=== PATIENT | female | born 1935 | race Caucasian/White ===

== ENCOUNTER 2016-11-24 16:33 | Observation (INO) | payer OTHER, BC ==
[~2016-11-24] VITALS: Ht 165.1 cm; Wt 61.4 kg
[~2016-11-24 16:33] MED LIST: ACID CONTROL150 MG PO; ALBUTEROL2.5 MG/3 M IH; AMLODIPINE BESYL5 MG PO; BENZONATATE200 MG PO; CALCIUM 500 +1 EAC4 PO; CALCIUM 500 MG1 EAC1 PO; CLONAZEPAM0.5 MG PO; CLONAZEPAM1 MG PO; DALIRESP500 MCG PO; DIFLUCAN150 MG PO; DOXYCYCLINE HY100 MG PO; EFFEXOR XR75 MG PO; EFFEXOR75 MG PO; HYDROCHLOROTHIA25 MG PO; JUBLIA4 ML TP; KLONOPIN1 MG PO; LEFLUNOMIDE20 MG PO; LEVAQUIN500 MG PO; NORCO 5/3251 TABLET PO; NORVASC5 MG PO; OCUVITE TABLET1 EACH PO; OMEPRAZOLE40 M1 PO; ONCE DAILY1 EACH PO; PAXIL20 MG PO; PREDNISONE20 MG PO; PREDNISONE50 MG PO; ROBITUSSIN AC,T10 ML PO; SPIRIVA1 INHALATI IH; SYMBICORT60 INHALAT IH; VENLAFAXINE HC150 M1 PO; VENTOLIN HFA18 GM IH
[2016-11-24 17:07] LABS: HEMATOCRIT 42.9 % (36.0-46.0); MCH 28.8 PG (29.0-34.0); MCHC 32.9 G/DL (30.0-36.0); MCV 87.7 FL (83-99); MEAN PLAT.VOLUME 10.5 uM^3 (9.5-12.4); PLATELET COUNT 214 K/uL (156-360); RBC DIS.WIDTH-CV 12.6 % (11.8-14.6); RBC DIS.WIDTH-SD 39.8 % (39-53); RED BLOOD COUNT 4.89 M/uL (3.80-5.20); WHITE BLOOD COUNT 5.2 K/uL (4.1-10.2)
[2016-11-24 17:16] LABS: CHLORIDE 99 mEq/L (99-109); POTASSIUM 3.9 mEq/L (3.7-5.4); SODIUM 139 mEq/L (136-147)
[2016-11-24 17:17] LABS: GLUCOSE 89 mg/dL (70-99)
[2016-11-24 17:19] LABS: ANION GAP 11 MEQ/L (2-14)
[2016-11-24 17:21] LABS: GFR ESTIMATE (CALCULATED) 51 mL/min/
[2016-11-24 17:22] LABS: UREA NITROGEN (BUN) 28 mg/dL (9-23)
[2016-11-24 17:27] LABS: TROP-I INTERPRETATION NEGATIVE; TROPONIN-I < 0.01 ng/mL (0.0-0.30)
[2016-11-24 20:43] VITALS: BP 158/88
== END 2016-11-24 20:58 | disposition left against medical advice (07) ==
LOC: EME 16:33 → EDOF 20:06
DX: I20.9 Angina pectoris, unspecified (principal); R07.9 Chest pain, unspecified; M54.2 Cervicalgia; R11.2 Nausea with vomiting, unspecified; I10 Essential (primary) hypertension; J44.9 Chronic obstructive pulmonary disease, unspecified; K21.9 Gastro-esophageal reflux disease without esophagitis; Z88.8 Allergy status to other drugs, medicaments and biological substances; Z87.891 Personal history of nicotine dependence
CPT/HCPCS: 71020; 80048; 84484; 85027; 93005; G0378

== ENCOUNTER 2018-04-17 08:36 | Emergency (ER) | payer OTHER, BC ==
[~2018-04-17] VITALS: Ht 165.1 cm; Wt 58.4 kg
[2018-04-17 09:23] LABS: BASOPHIL COUNT 0.1 K/uL (0-0.1); EOSINOPHIL (%) 6.7 % (0-5); EOSINOPHIL COUNT 0.3 K/uL (0-0.3); HEMATOCRIT 41.5 % (36.0-46.0); HEMOGLOBIN 13.4 G/DL (11.9-15.5); IMMATURE GRANULOCYTE (%) 0.2 % (0.0-0.7); LYMPHOCYTE COUNT 0.8 K/uL (1.0-2.8); MCH 29.6 PG (29.0-34.0); MCHC 32.3 G/DL (30.0-36.0); MCV 91.6 FL (83-99); MONOCYTE (%) 11.4 % (3-12); MONOCYTE COUNT 0.6 K/uL (0-0.8); NEUTROPHIL (%) 65.7 % (45-76); NEUTROPHIL COUNT 3.3 K/uL (1.8-6.4); PLATELET COUNT 173 K/uL (156-360); RBC DIS.WIDTH-CV 12.7 % (11.8-14.6); RBC DIS.WIDTH-SD 43.2 % (39-53); RED BLOOD COUNT 4.53 M/uL (3.80-5.20); WHITE BLOOD COUNT 5.1 K/uL (4.1-10.2)
[2018-04-17 09:31] LABS: PTT 29.3 SEC (25-37)
[2018-04-17 09:34] LABS: CHLORIDE 101 mEq/L (99-109); POTASSIUM 4.4 mEq/L (3.7-5.4); SODIUM 142 mEq/L (136-147)
[2018-04-17 09:36] LABS: GLUCOSE 82 mg/dL (70-99)
[2018-04-17 09:40] LABS: CREATININE 0.9 mg/dL (0.6-1.3); GFR ESTIMATE (CALCULATED) > 59 mL/min/
[2018-04-17 09:41] LABS: UREA NITROGEN (BUN) 28 mg/dL (9-23)
[2018-04-17 09:44] LABS: TROP-I INTERPRETATION NEGATIVE; TROPONIN-I < 0.01 ng/mL (0.0-0.30)
[2018-04-17] MEDS ORDERED: ZITHROMAX Z-PA250 MG PO (10:45)
[2018-04-17] MEDS ORDERED: PREDNISONE50 MG PO (10:45)
[2018-04-17 11:12] VITALS: BP 134/81
== END 2018-04-17 11:14 | disposition home or self-care (01) ==
LOC: EME 08:36
PROVIDERS: Emergency Medicine
DX: J44.1 Chronic obstructive pulmonary disease with (acute) exacerbation (principal); J20.9 Acute bronchitis, unspecified; J44.0 Chronic obstructive pulmonary disease with (acute) lower respiratory infection; Z99.81 Dependence on supplemental oxygen; Z87.891 Personal history of nicotine dependence; K21.9 Gastro-esophageal reflux disease without esophagitis; I10 Essential (primary) hypertension; I73.00 Raynaud's syndrome without gangrene
CPT/HCPCS: 71045; 80048; 84484; 85025; 85610; 85730; 93005; 94640; 99202; 99281; 99284

== ENCOUNTER 2018-05-01 09:12 | Emergency (ER) | payer OTHER, BC ==
[~2018-05-01] VITALS: Ht 165.1 cm; Wt 58.1 kg
[~2018-05-01 09:12] MED LIST changes: +ZITHROMAX Z-PA250 MG PO
[2018-05-01 11:10] LABS: HEMATOCRIT 41.9 % (36.0-46.0); HEMOGLOBIN 13.5 G/DL (11.9-15.5); MCH 29.5 PG (29.0-34.0); MCHC 32.2 G/DL (30.0-36.0); MCV 91.5 FL (83-99); PLATELET COUNT 175 K/uL (156-360); RBC DIS.WIDTH-CV 12.8 % (11.8-14.6); RBC DIS.WIDTH-SD 42.9 % (39-53); RED BLOOD COUNT 4.58 M/uL (3.80-5.20); WHITE BLOOD COUNT 7.6 K/uL (4.1-10.2)
[2018-05-01 11:20] LABS: CHLORIDE 101 mEq/L (99-109); POTASSIUM 4.4 mEq/L (3.7-5.4); SODIUM 140 mEq/L (136-147)
[2018-05-01 11:22] LABS: GLUCOSE 92 mg/dL (70-99)
[2018-05-01 11:26] LABS: CREATININE 0.8 mg/dL (0.6-1.3); GFR ESTIMATE (CALCULATED) > 59 mL/min/
[2018-05-01 11:27] LABS: UREA NITROGEN (BUN) 24 mg/dL (9-23)
[2018-05-01 11:30] LABS: TROP-I INTERPRETATION NEGATIVE; TROPONIN-I 0.01 ng/mL (0.0-0.30)
[2018-05-01 13:08] LABS: APPEARANCE CLEAR ((CLEAR)); BILIRUBIN NEGATIVE; BLOOD NEGATIVE; COLOR STRAW ((YELLOW)); GLUCOSE (STRIP) NEGATIVE; KETONES NEGATIVE; LEUKOCYTES NEGATIVE; NITRITE NEGATIVE; PROTEIN (STRIP) NEGATIVE; SPECIFIC GRAVITY 1.009 (1.000-1.030); UCUL ADDED? NO; UROBILINOGEN 0.2 MG/DL (0.2-1.0)
[2018-05-01] MEDS ORDERED: ULTRA-LIGHT RO1 EACH MC (15:28)
[2018-05-01 16:04] VITALS: BP 177/90
== END 2018-05-01 16:05 | disposition home or self-care (01) ==
LOC: EME 09:12
PROVIDERS: Nurse Practitioner Family
DX: J44.9 Chronic obstructive pulmonary disease, unspecified (principal); W18.30XA Fall on same level, unspecified, initial encounter; R91.8 Other nonspecific abnormal finding of lung field; I10 Essential (primary) hypertension; K21.9 Gastro-esophageal reflux disease without esophagitis; Z79.51 Long term (current) use of inhaled steroids; Z99.81 Dependence on supplemental oxygen; Z87.891 Personal history of nicotine dependence; Z86.2 Personal history of diseases of the blood and blood-forming organs and certain disorders involving the immune mechanism; Z88.8 Allergy status to other drugs, medicaments and biological substances
CPT/HCPCS: 70450; 71046; 71275; 72125; 72126; 73030; 80048; 81003; 84484; 85027; 93005; 99281; 99284; G8978 GP CK; G8979 GP CI; G8980 GP CK; G8987 GO CJ; G8988 CI; G8989 CJ; J7120